=== PATIENT | male | born 1940 | race Caucasian/White ===

== ENCOUNTER 2016-08-30 20:30 | Observation (INO) | payer MEDICARE, OTHER ==
[~2016-08-30] VITALS: Ht 165.1 cm; Wt 85.0 kg
[~2016-08-30 20:30] MED LIST: FLUO-1 PO; LISI-360 PO; ST J81CH PO
[2016-08-30 20:39] VITALS: BP 129/66; PULSE 72; RESP 16; TEMP 98.2; O2SAT 98
--- NOTE | 2016-08-30 20:44 | PD ---
HPI Chief Complaint: GI Complaint Time Seen by Provider: 20:41 Travel History International Travel<30 days: No Contact w/Intl Traveler<30days: No Traveled to known affect area: No History of Present Illness HPI 75yo M with PMH of rectal CA s/p resection 2006, HTN presents to the ED with c/ o blood in diarrhea yesterday and today. Pt has large amounts of blood clots in the diarrhea. Pt had history of gastric ulcer but had colonoscopy and endoscopy 2 years ago in [place] that was normal. As per EVAC, pt was diaphoretic with systolic bp in the low 100. Pt given zofran. +Nausea. Denies any fever, chest pain, sob, vomiting, abdominal pain, focal weakness or numbness. PFSH Past Medical History Hx Anticoagulant Therapy: No Diminished Hearing: No Hypertension: Yes Past Surgical History Eye Surgery: Yes (BILAT CATARACTS) Genitourinary Surgery: Yes (COLON RESECTION) Other Surgery: Yes (BLEEDING ULCER REPAIR) Social History Alcohol Use: Yes (SOC) Tobacco Use: No Substance Use: No Allergies-Medications (Allergen,Severity, Reaction): Coded Allergies: Penicillin (Verified Allergy, Intermediate, HIVES, 08/30/16) Reported Meds & Prescriptions Reported Meds & Active Scripts Active Reported Lisinopril 20 Mg Tab 20 Mg PO DAILY Simvastatin 20 Mg Tab 20 Mg PO DAILY Aspirin 81 Mg Chew 81 Mg CHEW DAILY Prozac (Fluoxetine HCl) 20 Mg Cap 20 Mg PO DAILY Prilosec (Omeprazole) 20 Mg Cap 20 Mg PO DAILY Review of Systems Except as stated in HPI: all other systems reviewed are Neg Physical Exam Narrative GENERAL: 75yo M in mild distress. SKIN: Diaphoretic and pale. HEAD: Atraumatic. Normocephalic. EYES: Pupils equal and round. No scleral icterus. No injection or drainage. ENT: No nasal bleeding or discharge. Mucous membranes pink and moist. NECK: Trachea midline. No JVD. CARDIOVASCULAR: Regular rate and rhythm. No murmur appreciated. RESPIRATORY: No accessory muscle use. Clear to auscultation. Breath sounds equal bilaterally. GASTROINTESTINAL: Abdomen soft, non-tender, nondistended. No rebound tenderness or guarding. RECTAL: Pt has blood clots and maroon color blood on the sheets. MUSCULOSKELETAL: No obvious deformities. No clubbing. No cyanosis. No edema. NEUROLOGICAL: Awake and alert. No obvious cranial nerve deficits. Motor grossly within normal limits. Normal speech. PSYCHIATRIC: Appropriate mood and affect; insight and judgment normal. Data Data Last Documented VS Vital Signs Date Time Temp Pulse Resp B/P Pulse Ox O2 Delivery O2 Flow Rate FiO2 08/30/16 21:06 97 Nasal Cannula 2 08/30/16 20:39 98.2 72 16 129/66 Orders Basic Metabolic Panel (Bmp) (08/30/16 20:47) Complete Blood Count With Diff (08/30/16 20:47) Lipase (08/30/16 20:47) Prothrombin Time / Inr (Pt) (08/30/16 20:47) Act Partial Throm Time (Ptt) (08/30/16 20:47) Type And Screen (08/30/16 20:47) Ecg Monitoring (08/30/16 20:47) Iv Access Insert/Monitor (08/30/16 20:47) Oximetry (08/30/16 20:47) Sodium Chlor 0.9% 1000 Ml Inj (Ns 1000 M (08/30/16 20:47) Sodium Chloride 0.9% Flush (Ns Flush) (08/30/16 21:00) Pantoprazole Inj (Protonix Inj) (08/30/16 21:00) Pantoprazole Inj (Protonix Inj) (08/30/16 21:00) Electrocardiogram (08/30/16 ) Blood Product Administration .UPON TRANSFUSION (08/30/16 21:50) Sodium Chlor 0.9% 250 Ml Inj (Ns 250 Ml (08/30/16 22:00) Protein Corrected Calcium(Pcc) (08/30/16 20:50) Calcium Gluconate Inj (Calcium Gluconate (08/30/16 22:45) Admit Order (Ed Use Only) (08/30/16 22:38) Consult Gastroenterology (08/30/16 ) Red Blood Cells (Rbc) (08/30/16 20:50) Labs Laboratory Tests Test 08/30/16 08/30/16 08/30/16 20:50 21:50 22:21 White Blood Count 7.8 TH/MM3 Red Blood Count 2.32 MIL/MM3 Hemoglobin 7.1 GM/DL Hematocrit 20.8 % Mean Corpuscular Volume 89.3 FL Mean Corpuscular Hemoglobin 30.4 PG Mean Corpuscular Hemoglobin 34.1 % Concent Red Cell Distribution Width 15.0 % Platelet Count 183 TH/MM3 Mean Platelet Volume 9.3 FL Neutrophils (%) (Auto) 72.0 % Lymphocytes (%) (Auto) 18.8 % Monocytes (%) (Auto) 7.5 % Eosinophils (%) (Auto) 0.9 % Basophils (%) (Auto) 0.8 % Neutrophils # (Auto) 5.6 TH/MM3 Lymphocytes # (Auto) 1.5 TH/MM3 Monocytes # (Auto) 0.6 TH/MM3 Eosinophils # (Auto) 0.1 TH/MM3 Basophils # (Auto) 0.1 TH/MM3 CBC Comment AUTO DIFF Differential Comment AUTO DIFF CONFIRMED Platelet Estimate NORMAL Platelet Morphology Comment NORMAL Stomatocytes 1+ Sodium Level 138 MEQ/L Potassium Level 3.7 MEQ/L Chloride Level 105 MEQ/L Carbon Dioxide Level 25.6 MEQ/L Anion Gap 7 MEQ/L Blood Urea Nitrogen 21 MG/DL Creatinine 0.91 MG/DL Estimat Glomerular Filtration 82 ML/MIN Rate Random Glucose 143 MG/DL Calcium Level 6.9 MG/DL Protein Corrected Calcium 8.2 MG/DL Total Protein 4.6 GM/DL Lipase 154 U/L Blood Type O POSITIVE Antibody Screen NEGATIVE Crossmatch Leukocyte-Reduced Irradiated/Leukocyte-Reduced Red Blood RBC Cells Blood Bank Comment Prothrombin Time 11.2 SEC Prothromb Time International 1.0 RATIO Ratio Activated Partial 25.0 SEC Thromboplast Time MDM Medical Decision Making Medical Screen Exam Complete: Yes Emergency Medical Condition: Yes Interpretation(s) EKG: NSR 78bpm. Normal axis. RBBB. ST segment appear elevated in III but it is in an isolated lead and pt has no chest pain. Differential Diagnosis AV malformation vs. rectal bleed vs. upper GI bleed Narrative Course 75yo M with lower GI bleed. Pt is diaphoretic and pale. His vital signs improved upon arrival to the ED. BP 129/66. HR 73. O2sat 96% on RA. Will obtain labs and give IVF NS, blood as needed and protonix. Labs reviewed, hemoglobin 7.1. Will transfuse 3 units of PRBC since pt is having active bleeding. Pt consented to blood transfusion. Pt on protonix drip. Corrected calcium on the lower end and will be transfusing blood so calcium gluconate 1gm IV given. Discussed with Dr. Barnett's ENVIRONMENTAL SERVICES FLOOR TECH and accepted to his service. GI consult placed. Critical Care Narrative Aggregate critical care time was 40 minutes. Time to perform other separately billable procedures was not included in the critical care time. My time did not include minutes spent treating any other patients simultaneously or on activities that did not directly contribute to the patient's treatment. The services I provided to this patient were to treat and/or prevent clinically significant deterioration that could result in: cardiovascular collapse or . I provided critical care services requiring my management, as noted below: Chart data review, documentation time, medication orders and management, vital sign assessments/reviewing monitor data, ordering and reviewing lab tests, ordering and interpreting/reviewing x-rays and diagnostic studies, care of the patient and discussion of the patient with the admitting physicians. Diagnosis Primary Impression: GI bleed Qualified Code: K92.2 - Gastrointestinal hemorrhage, unspecified gastrointestinal hemorrhage type Admitting Information Admitting Physician Requests: Ena Ferguson DO Aug 30, 2016 20:44
[2016-08-30] MEDS ORDERED: PRIL20CA9 PO (20:45)
[2016-08-30] MEDS ORDERED: ASPI81CH CHEW (20:45)
[2016-08-30] MEDS ORDERED: LISI-515 PO (20:45)
[2016-08-30] MEDS ORDERED: SIMV20TA PO (20:45)
[2016-08-30] MEDS ORDERED: PROZ20CA11 PO (20:45)
[2016-08-30] MEDS ORDERED: SODIUM CHLOR 0.9% 1000 ML INJ 1,000 ML IV SCH (20:47)
[2016-08-30] MEDS ORDERED: PANTOPRAZOLE INJ 80 MG in SODIUM CHLORIDE 0.9% INJ 35 ML IV ONE (21:00)
[2016-08-30] MEDS ORDERED: SODIUM CHLORIDE 0.9% FLUSH 10 ML FLUSH IVF PRN (21:00)
[2016-08-30 21:06] VITALS: O2SAT 97
[2016-08-30] MEDS: PANTOPRAZOLE INJ 80 MG in SODIUM CHLORIDE 0.9% INJ 100 ML IV SCH (21:25)
[2016-08-30 21:37] LABS: AUTOMATED NEUTROPHIL # 5.6 TH/MM3 (1.8-7.7); BASOPHIL # 0.1 TH/MM3 (0-0.2); BASOPHIL % 0.8 % (0.0-2.0); EOSINOPHIL # 0.1 TH/MM3 (0-0.4); EOSINOPHIL % 0.9 % (0.0-4.0); LYMPH % 18.8 % (9.0-44.0); LYMPHOCYTE # 1.5 TH/MM3 (1.0-4.8); MEAN CELL VOLUME 89.3 FL (80.0-100.0); MEAN CORPUSCULAR HEMOGLOBIN 30.4 PG (27.0-34.0); MEAN CORPUSCULAR HGB CONC 34.1 % (32.0-36.0); MONO % 7.5 % (0.0-8.0); PLATELET COUNT 183 TH/MM3 (150-450); RED BLOOD COUNT 2.32 MIL/MM3 (4.50-5.90); WHITE BLOOD COUNT 7.8 TH/MM3 (4.0-11.0)
[2016-08-30 21:42] LABS: HEMO FLAGS AUTO DIFF
[2016-08-30 21:48] LABS: HEMATOCRIT 20.8 % (39.0-51.0)
[2016-08-30] MEDS ORDERED: SODIUM CHLOR 0.9% 250 ML INJ 250 ML IV ONE (22:00)
[2016-08-30 22:05] LABS: BICARBONATE 25.6 MEQ/L (21.0-32.0); POTASSIUM 3.7 MEQ/L (3.5-5.1)
[2016-08-30 22:27] LABS: PLATELET ESTIMATE SMEAR NORMAL (NORMAL); PLATELET MORPHOLOGY NORMAL (NORMAL); SCAN/DIFF AUTO DIFF CONFIRMED; STOMATOCYTES 1+ (NORMAL)
[2016-08-30 22:31] LABS: CALCIUM-PROTEIN CORRECTED 8.2 MG/DL (8.5-10.1)
[2016-08-30 22:37] LABS: PROTHROMBIN TIME - PATIENT 11.2 SEC (9.8-11.6)
[2016-08-30] MEDS ORDERED: CALCIUM GLUCONATE INJ 1 GM in DEXTROSE 5% IN WATER 100ML INJ 100 ML IV ONE ×2 (22:45)
[2016-08-30] MEDS ORDERED: SODIUM CHLORIDE 0.9% FLUSH 10 ML FLUSH IV FLUSH PRN (23:00)
[2016-08-30] MEDS ORDERED: ONDANSETRON HCL 4 MG/2 ML VIAL IV PRN (23:00)
[2016-08-30] MEDS: SODIUM CHLOR 0.9% 1000 ML INJ 1,000 ML IV SCH (23:09)
[2016-08-31] VITALS (22 sets, daily range): BP systolic 108–147; BP diastolic 55–92; PULSE 79–107; RESP 16–22; TEMP 96.2–98.1; O2SAT 95–99
[2016-08-31] MEDS: PANTOPRAZOLE INJ 80 MG in SODIUM CHLORIDE 0.9% INJ 100 ML IV SCH ×2 (08:57→16:20)
[2016-08-31] MEDS: FLUoxetine HCL 20 MG CAP PO SCH (08:58)
[2016-08-31] MEDS: PANTOPRAZOLE SODIUM 40 MG VIAL IV SCH (08:58)
[2016-08-31] MEDS: SODIUM CHLORIDE 0.9% FLUSH 10 ML FLUSH IV FLUSH SCH ×2 (09:00→21:00)
--- NOTE | 2016-08-31 10:18 | PD.CONS ---
HPI History of Present Illness This is a 75 year old male who came to the ER for evaluation of bloody diarrhea that began 2 days ago. He was in his normal state of health up until 2 days ago , when he had the sudden urge to move his bowels. He reports that he had a large amount of bloody diarrhea consisting of a large amount of bright red blood. He states he felt lightheaded for a bit, but afterwards felt fine later in the afternoon, went out with his and had no further issues. He then woke up in the morning and had another episode of a large amount of bloody stool. This continued all day and he became so weak that he could not even get up to make it to the bathroom and therefore he called the ambulance for further treatment. He did have a small amount of nausea without vomiting last night in the ambulance, but otherwise did not have any nausea/vomiting. He denies any abdominal pain. His appetite has been good and he denies any weight loss. He does have a hx of stage III colon cancer in 2008 and had 13 inches of colon removed at that time. He did not require radiation. Chemotherapy was recommended, but he had AMS with one dose and states he stopped it and did not receive any further chemotherapy. He gets regular colonoscopies and reports that these have been normal. He reports that he last had [place] E[place] and reports that this was normal. He takes ASA daily and takes Ibuprofen occasionally, but nothing on a regular basis as far as the Ibuprofen. He drinks a few beers daily. He does have a hx of bleeding ulcers in 2003, but states he has not had issues since that time and takes a daily Prilosec. No exotic travel, suspicious food, or sick contacts. (Juli Nieves) PFSH Past Medical History Colon cancer, tx with partial colectomy 2008 HTN, controlled with lisinopril and HCTZ Hyperlipidemia GERD Bleeding PUD Past Surgical History Partial colectomy EGD/Colonoscopy Sinus surgery Port placement Cataract surgery (Juli Nieves) Coded Allergies: Penicillin (Verified Allergy, Intermediate, HIVES, 08/30/16) Medications Allergies Coded Allergies Type Severity Reaction Last Updated Verified Penicillin Allergy Intermediate HIVES 08/30/16 Yes Active Scripts Medications Dose Route/Sig Days Date Category Lisinopril 20 Mg Tab 20 Mg PO DAILY 08/30/16 Reported Simvastatin 20 Mg Tab 20 Mg PO DAILY 08/30/16 Reported Aspirin 81 Mg Chew 81 Mg CHEW DAILY 08/30/16 Reported Prozac (Fluoxetine HCl) 20 Mg Cap 20 Mg PO DAILY 08/30/16 Reported Prilosec (Omeprazole) 20 Mg Cap 20 Mg PO DAILY 08/30/16 Reported Family History No family hx of colon cancer. Mother from ? liver cancer. Social History No tobacco. Quit 50 years ago. 2 beers daily (Juli Nieves) Review of Systems Constitutional: COMPLAINS OF: Fatigue, DENIES: Fever, Chills Endocrine: DENIES: Polydipsia Respiratory: DENIES: Cough Cardiovascular: DENIES: Chest pain Gastrointestinal: COMPLAINS OF: Bloody stools, Nausea, DENIES: Abdominal pain , Black stools, Diarrhea, Vomiting, Swelling of Abdomen, Hematemesis Musculoskeletal: DENIES: Joint pain Hematologic/lymphatic: DENIES: Bruising Neurologic: DENIES: Headache Psychiatric: DENIES: Confusion (Juli Nieves) GI Exam Vitals I&O Vital Signs Date Time Temp Pulse Resp B/P Pulse Ox O2 Delivery O2 Flow Rate FiO2 08/31/16 09:32 96.5 79 16 121/55 98 08/31/16 08:59 96.2 85 17 126/59 98 08/31/16 08:39 96.3 101 17 126/92 98 08/31/16 07:53 97.6 88 16 128/60 99 08/31/16 07:40 97.9 87 18 114/58 98 08/31/16 06:00 97.8 86 20 120/75 98 08/31/16 04:30 98.1 85 20 114/66 98 08/31/16 03:30 98.0 91 22 117/61 08/31/16 03:15 98.0 80 21 108/58 95 08/31/16 03:00 98.0 85 20 111/58 96 08/31/16 02:35 98.1 82 20 111/84 96 08/31/16 02:01 98.1 79 18 116/57 97 08/31/16 02:00 83 08/30/16 21:06 97 Nasal Cannula 2 08/30/16 20:39 98.2 72 16 129/66 98 I/O 08/30/16 08/30/16 08/30/16 08/31/16 08/31/16 08/31/16 07:00 15:00 23:00 07:00 15:00 23:00 Intake Total 550 ml Balance 550 ml IV Total 550 ml # Voids 1 # Bowel Movements 1 Laboratory Test 08/30/16 08/30/16 08/30/16 08/30/16 20:50 21:50 22:21 23:15 White Blood Count 7.8 TH/MM3 Red Blood Count 2.32 MIL/MM3 Hemoglobin 7.1 GM/DL Hematocrit 20.8 % Mean Corpuscular Volume 89.3 FL Mean Corpuscular Hemoglobin 30.4 PG Mean Corpuscular Hemoglobin 34.1 % Concent Red Cell Distribution Width 15.0 % Platelet Count 183 TH/MM3 Mean Platelet Volume 9.3 FL Neutrophils (%) (Auto) 72.0 % Lymphocytes (%) (Auto) 18.8 % Monocytes (%) (Auto) 7.5 % Eosinophils (%) (Auto) 0.9 % Basophils (%) (Auto) 0.8 % Neutrophils # (Auto) 5.6 TH/MM3 Lymphocytes # (Auto) 1.5 TH/MM3 Monocytes # (Auto) 0.6 TH/MM3 Eosinophils # (Auto) 0.1 TH/MM3 Basophils # (Auto) 0.1 TH/MM3 CBC Comment AUTO DIFF Differential Comment AUTO DIFF CONFIRMED Platelet Estimate NORMAL Platelet Morphology Comment NORMAL Stomatocytes 1+ Sodium Level 138 MEQ/L Potassium Level 3.7 MEQ/L Chloride Level 105 MEQ/L Carbon Dioxide Level 25.6 MEQ/L Anion Gap 7 MEQ/L Blood Urea Nitrogen 21 MG/DL Creatinine 0.91 MG/DL Estimat Glomerular Filtration 82 ML/MIN Rate Random Glucose 143 MG/DL Calcium Level 6.9 MG/DL Protein Corrected Calcium 8.2 MG/DL Total Protein 4.6 GM/DL Lipase 154 U/L Blood Type O POSITIVE O POSITIVE Antibody Screen NEGATIVE Crossmatch Leukocyte-Reduced Irradiated/Leukocyte-Reduced Red Blood RBC Cells Blood Bank Comment Prothrombin Time 11.2 SEC Prothromb Time International 1.0 RATIO Ratio Activated Partial 25.0 SEC Thromboplast Time Test 08/30/16 23:59 Blood Type O POSITIVE Physical Examination HEENT: Normocephalic; atraumatic; no jaundice. CHEST: CTA CARDIAC: RRR ABDOMEN: Soft, nondistended, nontender; no hepatosplenomegaly; bowel sounds are present in all four quadrants. EXTREMITIES: No clubbing, cyanosis, or edema. SKIN: Normal; no rash; no jaundice. GLOBAL LOGISTICS MANAGER: No focal deficits; alert and oriented times three. (Juli Nieves) Assessment and Plan Plan ASSESSMENT: - GIB, Bloody Diarrhea. 2 day hx of bloody diarrhea with large amount of bright red blood mixed within stool. No recent travel, suspicious food, sick contacts. Hx colon cancer in 2008. Hx bleeding ulcer in 2003. Last EGD/Colonoscopy [place] ago ([place] of state) and reportedly nL. H/H 7.1/20.8. 2 units PRBC. Will prep today and plan for egd/colonoscopy in am. PPI - Anemia. H/H 7.1/20.8. 2 units PRBC. PPI - Hx Colon cancer. Dx with Stage III colon cancer in 2008 and had partial colectomy with 13 inches of colon removed at that time. He did not require radiation. Chemotherapy was recommended, but he had AMS with one dose and states he stopped it and did not receive any further chemotherapy. He gets regular colonoscopies and reports that these have been normal. He reports that he last had an EGD/[place] and reports that this was normal. - Hx Bleeding PUD. PPI. No n/v, abdominal pain. PLAN: - Plan for egd/colonoscopy in am - Obtain consents - Clear liquids - NPO after MN - [place]ley prep - PPI - Monitor HH - Transfuse as necessary - CBC, BMP in am - Pt seen and examined by Dr. Denies and myself and this note is written on his behalf (Juli Nieves) Physician Comments Seen and examined with FREDRICK, no active bleeding at present. Egd/colonoscopy planned once bowel prep completed. Consider CT scan abd/pelvis. Will follow. Thank you (Brook Denise MD) Juli Nieves Aug 31, 2016 10:18 Brook Denise MD Aug 31, 2016 13:50
--- NOTE | 2016-08-31 11:07 | HHI.HP ---
History of Present Illness Primary Care Physician Bora Barnett, DO Admission Diagnosis GI bleed Diagnoses: History of Present Illness pt had rectal bleeding over the past few days he thought that he had popped a hemrrhoid last pm the bleeding worsened aand he presented to the ED He has had previous colon resection for cancer in the [facility] he had no fu chemo or radiation rx he has also had a previous bleeding ulcer Review of Systems Gastrointestinal: COMPLAINS OF: Abdominal pain, Bloody stools Except as stated in HPI: all other systems reviewed are Neg Past Family Social History Allergies: Coded Allergies: Penicillin (Verified Allergy, Intermediate, HIVES, 08/30/16) Past Medical History cfolon cancer gastric ulcer Past Surgical History colon resection Reported Medications Current Medications Medications (Trade) Dose Ordered Sig/Diamante Route PRN Reason Start Time Stop Time Status Last Admin Dose Admin Pantoprazole Sodium 80 mg/ Sodium Chloride 100 ml @ 10 mls/hr Q10H IV 08/30/16 21:00 08/31/16 08:57 Sodium Chloride 250 ml @ 15 mls/hr ONCE ONCE IV 08/30/16 22:00 08/31/16 14:39 Sodium Chloride (NS 1000 ml Inj) 1,000 ml @ 30 mls/hr Q24H IV 08/30/16 22:49 08/30/16 23:09 Sodium Chloride (NS Flush) 2 ml UNSCH PRN IV FLUSH FLUSH AFTER USING IV ACCESS 08/30/16 23:00 Sodium Chloride (NS Flush) 2 ml BID IV FLUSH 08/31/16 09:00 08/31/16 09:00 Ondansetron HCl (Zofran Inj) 4 mg Q6H PRN IV NAUSEA 08/30/16 23:00 Pantoprazole Sodium (Protonix Inj) 40 mg DAILY IV 08/31/16 09:00 08/31/16 08:58 Fluoxetine HCl (PROzac) 20 mg DAILY PO 08/31/16 09:00 08/31/16 08:58 Polyethylene Glycol/ Electrolytes (Colyte Liq) 4,000 ml ONCE ONCE PO 08/31/16 16:00 08/31/16 16:01 Active Ordered Medications Current Medications Medications (Trade) Dose Ordered Sig/Diamante Route PRN Reason Start Time Stop Time Status Last Admin Dose Admin Pantoprazole Sodium 80 mg/ Sodium Chloride 100 ml @ 10 mls/hr Q10H IV 08/30/16 21:00 08/31/16 08:57 Sodium Chloride 250 ml @ 15 mls/hr ONCE ONCE IV 08/30/16 22:00 08/31/16 14:39 Sodium Chloride (NS 1000 ml Inj) 1,000 ml @ 30 mls/hr Q24H IV 08/30/16 22:49 08/30/16 23:09 Sodium Chloride (NS Flush) 2 ml UNSCH PRN IV FLUSH FLUSH AFTER USING IV ACCESS 08/30/16 23:00 Sodium Chloride (NS Flush) 2 ml BID IV FLUSH 08/31/16 09:00 08/31/16 09:00 Ondansetron HCl (Zofran Inj) 4 mg Q6H PRN IV NAUSEA 08/30/16 23:00 Pantoprazole Sodium (Protonix Inj) 40 mg DAILY IV 08/31/16 09:00 08/31/16 08:58 Fluoxetine HCl (PROzac) 20 mg DAILY PO 08/31/16 09:00 08/31/16 08:58 Polyethylene Glycol/ Electrolytes (Colyte Liq) 4,000 ml ONCE ONCE PO 08/31/16 16:00 08/31/16 16:01 Family History father of old age mother of cancer Social History non smoker occasional drinker Physical Exam Vital Signs Vital Signs Date Time Temp Pulse Resp B/P Pulse Ox O2 Delivery O2 Flow Rate FiO2 08/31/16 10:38 96.3 85 17 130/60 08/31/16 09:32 96.5 79 16 121/55 98 08/31/16 08:59 96.2 85 17 126/59 98 08/31/16 08:39 96.3 101 17 126/92 98 08/31/16 07:53 97.6 88 16 128/60 99 08/31/16 07:40 97.9 87 18 114/58 98 08/31/16 06:00 97.8 86 20 120/75 98 08/31/16 04:30 98.1 85 20 114/66 98 08/31/16 03:30 98.0 91 22 117/61 08/31/16 03:15 98.0 80 21 108/58 95 08/31/16 03:00 98.0 85 20 111/58 96 08/31/16 02:35 98.1 82 20 111/84 96 08/31/16 02:01 98.1 79 18 116/57 97 08/31/16 02:00 83 08/30/16 21:06 97 Nasal Cannula 2 08/30/16 20:39 98.2 72 16 129/66 98 Physical Exam GENERAL: This is a well-nourished, well-developed patient, in no apparent distress. SKIN: No rashes, ecchymoses or lesions. Cool and dry. HEAD: Atraumatic. Normocephalic. No temporal or scalp tenderness. EYES: Pupils equal round and reactive. Extraocular motions intact. No scleral icterus. No injection or drainage. ENT: Nose without bleeding, purulent drainage or septal hematoma. Throat without erythema, tonsillar hypertrophy or exudate. Uvula midline. Airway patent. NECK: Trachea midline. No JVD or lymphadenopathy. Supple, nontender, no meningeal signs. CARDIOVASCULAR: Regular rate and rhythm without murmurs, gallops, or rubs. RESPIRATORY: Clear to auscultation. Breath sounds equal bilaterally. No wheezes , rales, or rhonchi. GASTROINTESTINAL: Abdomen soft, tender, nondistended. No hepato-splenomegaly, or palpable masses. MUSCULOSKELETAL: Extremities without clubbing, cyanosis, or edema. No joint tenderness, effusion, or edema noted. No calf tenderness. Negative Homans sign bilaterally. NEUROLOGICAL: Awake and alert. Cranial nerves II through XII intact. Motor and sensory grossly within normal limits. Five out of 5 muscle strength in all muscle groups. Normal speech. Laboratory Laboratory Tests Test 08/30/16 08/30/16 08/30/16 08/30/16 20:50 21:50 22:21 23:15 White Blood Count 7.8 Red Blood Count 2.32 Hemoglobin 7.1 Hematocrit 20.8 Mean Corpuscular Volume 89.3 Mean Corpuscular Hemoglobin 30.4 Mean Corpuscular Hemoglobin 34.1 Concent Red Cell Distribution Width 15.0 Platelet Count 183 Mean Platelet Volume 9.3 Neutrophils (%) (Auto) 72.0 Lymphocytes (%) (Auto) 18.8 Monocytes (%) (Auto) 7.5 Eosinophils (%) (Auto) 0.9 Basophils (%) (Auto) 0.8 Neutrophils # (Auto) 5.6 Lymphocytes # (Auto) 1.5 Monocytes # (Auto) 0.6 Eosinophils # (Auto) 0.1 Basophils # (Auto) 0.1 CBC Comment AUTO DIFF Differential Comment AUTO DIFF CONFIRMED Platelet Estimate NORMAL Platelet Morphology Comment NORMAL Stomatocytes 1+ Sodium Level 138 Potassium Level 3.7 Chloride Level 105 Carbon Dioxide Level 25.6 Anion Gap 7 Blood Urea Nitrogen 21 Creatinine 0.91 Estimat Glomerular Filtration 82 Rate Random Glucose 143 Calcium Level 6.9 Protein Corrected Calcium 8.2 Total Protein 4.6 Lipase 154 Blood Type O POSITIVE O POSITIVE Antibody Screen NEGATIVE Crossmatch Leukocyte-Reduced Irradiated/Leukocyte-Reduced Red Blood RBC Cells Blood Bank Comment Prothrombin Time 11.2 Prothromb Time International 1.0 Ratio Activated Partial 25.0 Thromboplast Time Test 08/30/16 23:59 Blood Type O POSITIVE Result Diagram: 08/30/16204908/30/162049 Assessment and Plan Problem List: (1) GI bleed Status: Acute Plan: currently being transfused will follow hgb closely pt is on iv protonix GI consulted will probably need endoscopy Discussed Condition With patient Problem Qualifiers (1) GI bleed: Qualified Code: K92.2 - Gastrointestinal hemorrhage, unspecified gastrointestinal hemorrhage type Bora Barnett DO Aug 31, 2016 11:07
[2016-08-31] MEDS ORDERED: PEG (High)/E-LYTE SOLN 4000 ML BTL PO ONE (16:00)
[2016-08-31 21:10] LABS: AUTOMATED NEUTROPHIL # 4.6 TH/MM3 (1.8-7.7); BASOPHIL # 0.1 TH/MM3 (0-0.2); BASOPHIL % 0.8 % (0.0-2.0); EOSINOPHIL # 0.1 TH/MM3 (0-0.4); EOSINOPHIL % 2.1 % (0.0-4.0); HEMATOCRIT 26.7 % (39.0-51.0); HEMO FLAGS DIFF FINAL; LYMPH % 22.4 % (9.0-44.0); LYMPHOCYTE # 1.6 TH/MM3 (1.0-4.8); MEAN CELL VOLUME 87.2 FL (80.0-100.0); MEAN CORPUSCULAR HEMOGLOBIN 30.2 PG (27.0-34.0); MEAN CORPUSCULAR HGB CONC 34.7 % (32.0-36.0); MONO % 9.4 % (0.0-8.0); NEUT % 65.3 % (16.0-70.0); PLATELET COUNT 140 TH/MM3 (150-450); RED BLOOD COUNT 3.06 MIL/MM3 (4.50-5.90); RED CELL DISTRIBUTION WIDTH 15.3 % (11.6-17.2); WHITE BLOOD COUNT 7.1 TH/MM3 (4.0-11.0)
[2016-08-31] MEDS: SODIUM CHLOR 0.9% 1000 ML INJ 1,000 ML IV SCH (22:00)
[2016-08-31 22:17] LABS: BICARBONATE 28.3 MEQ/L (21.0-32.0); POTASSIUM 3.5 MEQ/L (3.5-5.1)
[2016-08-31 23:17] LABS: CALCIUM-PROTEIN CORRECTED 8.5 MG/DL (8.5-10.1)
[2016-09-01 00:10] VITALS: BP 147/72; PULSE 89; RESP 19; TEMP 97.9; O2SAT 95
[2016-09-01] MEDS: PANTOPRAZOLE INJ 80 MG in SODIUM CHLORIDE 0.9% INJ 100 ML IV SCH (02:59)
[2016-09-01 07:15] LABS: AUTOMATED NEUTROPHIL # 3.2 TH/MM3 (1.8-7.7); BASOPHIL # 0.1 TH/MM3 (0-0.2); BASOPHIL % 1.4 % (0.0-2.0); EOSINOPHIL # 0.2 TH/MM3 (0-0.4); EOSINOPHIL % 4.6 % (0.0-4.0); HEMO FLAGS DIFF FINAL; LYMPH % 23.8 % (9.0-44.0); LYMPHOCYTE # 1.3 TH/MM3 (1.0-4.8); MEAN CELL VOLUME 87.3 FL (80.0-100.0); MEAN CORPUSCULAR HEMOGLOBIN 29.7 PG (27.0-34.0); MONO % 9.8 % (0.0-8.0); NEUT % 60.4 % (16.0-70.0); PLATELET COUNT 129 TH/MM3 (150-450); RED BLOOD COUNT 2.97 MIL/MM3 (4.50-5.90); RED CELL DISTRIBUTION WIDTH 15.2 % (11.6-17.2); WHITE BLOOD COUNT 5.4 TH/MM3 (4.0-11.0)
[2016-09-01 07:47] LABS: BICARBONATE 27.8 MEQ/L (21.0-32.0); CALCIUM-PROTEIN CORRECTED 8.6 MG/DL (8.5-10.1); POTASSIUM 3.4 MEQ/L (3.5-5.1); TOTAL BILIRUBIN ADULT 0.4 MG/DL (0.2-1.0)
[2016-09-01 08:34] VITALS: BP 144/70; PULSE 80; RESP 18; TEMP 97.5; O2SAT 96
[2016-09-01] MEDS: SODIUM CHLORIDE 0.9% FLUSH 10 ML FLUSH IV FLUSH SCH ×2 (09:00→20:33)
[2016-09-01] MEDS: PANTOPRAZOLE SODIUM 40 MG VIAL IV SCH (10:02)
[2016-09-01] MEDS: FLUoxetine HCL 20 MG CAP PO SCH (10:02)
--- NOTE | 2016-09-01 10:18 | HHI.PR ---
Subjective Remarks pt remains in ED no new bleeding Objective Vital Signs Date Time Temp Pulse Resp B/P Pulse Ox O2 Delivery O2 Flow Rate FiO2 09/01/16 08:34 97.5 80 18 144/70 96 09/01/16 00:10 97.9 89 19 147/72 95 08/31/16 20:07 98.0 97 19 147/82 96 08/31/16 19:54 107 08/31/16 15:56 91 08/31/16 15:47 92 18 118/65 95 08/31/16 14:49 96.2 86 18 133/60 08/31/16 14:19 96.9 87 18 126/60 08/31/16 13:51 97.3 92 18 143/65 98 08/31/16 11:55 84 18 122/60 95 08/31/16 10:38 96.3 85 17 130/60 I/O 08/31/16 08/31/16 08/31/16 09/01/16 09/01/16 09/01/16 07:00 15:00 23:00 07:00 15:00 23:00 Intake Total 550 ml 600 ml Balance 550 ml 600 ml IV Total 550 ml 600 ml # Voids 1 # Bowel Movements 1 Result Diagram: 09/01/16 0545 09/01/16 0545 Objective Remarks CONSTITUTIONAL/GENERAL: This is an adequately nourished patient, in no apparent distress. TUBES/LINES/DRAINS: SKIN: No jaundice, rashes, or lesions. Ecchymoses on upper extremities. No wounds seen anteriorly. Skin temperature appropriate. Not diaphoretic. HEAD: Atraumatic. Normocephalic. EYES: Pupils equal and round and reactive. Extraocular motions intact. No scleral icterus. No injection or drainage. Fundi not examined. ENT: Hearing grossly normal. Nose without bleeding or purulent drainage. Throat without visible erythema, exudates, masses, or lesions. NECK: Trachea midline. Supple, nontender. No palpable thyroid enlargement or nodularity. CARDIOVASCULAR: Regular rate and rhythm without murmurs, gallops, or rubs. No JVD. Peripheral pulses symmetric. RESPIRATORY/CHEST: Symmetric, unlabored respirations. Clear to auscultation. Breath sounds equal bilaterally. No wheezes, rales, or rhonchi. GASTROINTESTINAL: Abdomen soft, non-tender, nondistended. No hepato-splenomegaly , or palpable masses. No guarding. Bowel sounds present. GENITOURINARY: Without palpable bladder distension. Causey catheter in place. MUSCULOSKELETAL: Extremities without clubbing, cyanosis, or edema. No joint tenderness or effusion noted. No calf tenderness. No mottling or clubbing. LYMPHATICS: No palpable cervical or supraclavicular adenopathy. NEUROLOGICAL: Awake and alert. Motor and sensory grossly within normal limits. Follows commands. Cognitively sharp. Moves all extremities. PSYCHIATRIC: No obvious anxiety/depression. no apparent hallucinations or other psychotic thought process. Medications and IVs Current Medications Medications (Trade) Dose Ordered Sig/Diamante Route PRN Reason Start Time Stop Time Status Last Admin Dose Admin Pantoprazole Sodium 80 mg/ Sodium Chloride 100 ml @ 10 mls/hr Q10H IV 08/30/16 21:00 09/01/16 02:59 Sodium Chloride (NS 1000 ml Inj) 1,000 ml @ 30 mls/hr Q24H IV 08/30/16 22:49 08/31/16 22:00 Sodium Chloride (NS Flush) 2 ml UNSCH PRN IV FLUSH FLUSH AFTER USING IV ACCESS 08/30/16 23:00 Sodium Chloride (NS Flush) 2 ml BID IV FLUSH 08/31/16 09:00 08/31/16 09:00 Ondansetron HCl (Zofran Inj) 4 mg Q6H PRN IV NAUSEA 08/30/16 23:00 Pantoprazole Sodium (Protonix Inj) 40 mg DAILY IV 08/31/16 09:00 09/01/16 10:02 Fluoxetine HCl (PROzac) 20 mg DAILY PO 08/31/16 09:00 09/01/16 10:02 Assessment and Plan Problem List: (1) GI bleed Status: Acute Plan: pt scheduled for colonoscopy today Assessment and Plan gi bleed sp colon resection for cancer Problem Qualifiers (1) GI bleed: Qualified Code: K92.2 - Gastrointestinal hemorrhage, unspecified gastrointestinal hemorrhage type Bora Barnett DO Sep 01, 2016 10:18
[2016-09-01] MEDS ORDERED: PROPOFOL 200 MG/20 ML AMP IV ONE (11:28)
--- NOTE | 2016-09-01 11:47 | GIPROC ---
[facility] [address] [facility], [address] EGD PROCEDURE REPORT EXAM DATE: 09/01/2016 PATIENT NAME: Milton Bill MR #: [id number] BIRTHDATE: 1940 ATTENDING: Brook Denise MD ORDER #: [id number] HEAD HOUSEKEEPER: Destiny David and Gabby Prieto STATUS: inpatient INDICATIONS: The patient is a 75 yr old male here for an EGD due to hematochezia PROCEDURE PERFORMED: EGD w/ biopsy MEDICATIONS: Per Anesthesia and None. TOPICAL ANESTHETIC: CONSENT: The patient understands the risks and benefits of the procedure and understands that these risks include, but are not limited to: sedation, allergic reaction, infection, perforation and/or bleeding. Alternative means of evaluation and treatment include, among others: physical exam, x-rays, and/or surgical intervention. The patient elects to proceed with this endoscopic procedure. medical equipment was checked for proper function. Hand hygiene and appropriate measures for infection prevention was taken. After the risks, benefits and alternatives of the procedure were thoroughly explained, Informed consent was verified, confirmed and timeout was successfully executed by the treatment team. The patient was anesthetized with topical anesthesia and the EC-3490Li (Pedi C) endoscope was introduced through the mouth and advanced to the second portion of the duodenum. Retroflexed views revealed no abnormalities The gastroscope was then slowly withdrawn and removed. STOMACH: There was mild gastritis in the gastric antrum. A biopsy was performed using cold forceps. Sample sent for histology. ESOPHAGUS: The mucosa of the esophagus appeared normal. DUODENUM: The duodenal mucosa appeared normal. ADVERSE EVENTS: There were no complications. IMPRESSIONS: 1. There was mild gastritis in the gastric antrum; biopsy was performed 2. The esophagus appeared normal 3. Normal duodenal mucosa 4. Retroflexed views revealed no abnormalities RECOMMENDATIONS: 1. Await biopsy results. Biopsy results will not be ready for 7-10 days. If you don't hear from us in two weeks, call our office for biopsy results. 2. Anti-reflux regimen 3. Continue PPI 4. Avoid NSAIDS PATIENT CONDITION: stable DISPOSITION: Inpatient REPEAT EXAM: Return 3 years EGD Brook Denise MD eSigned: Brook Denise MD 09/01/2016 11:46 AM cc: PATIENT NAME: Milton Bill MR#: [id number]
[2016-09-01] MEDS ORDERED: DO NOT ADM ANY ANTICOAGULANT DRUGS PRN (11:50)
--- NOTE | 2016-09-01 11:50 | GIPROC ---
[facility] [address] [facility]. [facility], [address] COLONOSCOPY PROCEDURE REPORT EXAM DATE: 09/01/2016 PATIENT NAME: Milton Bill MR #: [id number] BIRTHDATE: 1940 ENDOSCOPIST: Brook Denise MD ORDER #: [id number] TURF FARM WORKER: Destiny David and Gabby Prieto STATUS: inpatient INDICATIONS: The patient is a 75 yr old male here for a colonoscopy due to iron deficiency anemia and hematochezia PROCEDURE PERFORMED: Colonoscopy, diagnostic MEDICATIONS: Per Anesthesia and None. PREP QUALITY: The [place] Bowel Prep Score was Right colon 2, Mid colon 3, and Left colon 3. Total = 8. PREP TYPE:GoLytely ESTIMATED BLOOD LOSS: None CONSENT: The patient understands the risks and benefits of the procedure and understands that these risks include, but are not limited to: sedation, allergic reaction, infection, perforation and/or bleeding. Alternative means of evaluation and treatment include, among others: physical exam, x-rays, and/or surgical intervention. The patient elects to proceed with this endoscopic procedure. medical equipment was checked for proper function. Hand hygiene and appropriate measures for infection prevention was taken. After the risks, benefits and alternatives of the procedure were thoroughly explained, Informed consent was verified, confirmed and timeout was successfully executed by the treatment team. A digital exam revealed external hemorrhoids The Pentax EC-3490Li endoscope was introduced through the anus and advanced to the cecum, which was identified by both the appendix and ileocecal valve. The instrument was then slowly withdrawn as the colon was fully examined. COLON FINDINGS: Normal colonoscopy to Terminel illeum. L sided anastomosis. Retroflexed views revealed internal hemorrhoids and Retroflexed views revealed small internal hemorrhoids The scope was then completely withdrawn from the patient and the procedure terminated. PROCEDURE WITHDRAWAL TIME:6minutes ADVERSE EVENTS: There were no complications. IMPRESSIONS: 1. Normal colonoscopy to Terminel illeum. L sided anastomosis 2. Retroflexed views revealed internal hemorrhoids 3. Retroflexed views revealed small internal hemorrhoids 4. Revealed external hemorrhoids RECOMMENDATIONS: 1. Yearly hemoccult 2. Monitor labs, SBFT, if further bleeding recommend bleeding scan. Out patient Pill cam RECALL: Return 5 years Colonoscopy Brook Denise MD eSigned: Brook Denise MD 09/01/2016 11:50 AM cc:
[2016-09-01] MEDS ORDERED: MAGNESIUM CITRATE SOLN 300 ML BTL PO ONE ×2 (12:00→18:00)
[2016-09-01 16:14] VITALS: BP 142/60; PULSE 79; RESP 20; TEMP 97.8; O2SAT 97
[2016-09-01 17:46] VITALS: PULSE 74
[2016-09-01] MEDS: BISACODYL EC 5 MG TABEC PO SCH ×2 (18:00→20:34)
[2016-09-01 19:40] VITALS: BP 153/70; PULSE 87; RESP 20; TEMP 98.1; O2SAT 97
[2016-09-01] MEDS: SODIUM CHLOR 0.9% 1000 ML INJ 1,000 ML IV SCH (20:35)
--- NOTE | 2016-09-01 21:23 | EKG ---
Date Performed: 08/30/2016 Time Performed: 21:10:50 PTAGE: 75 years EKG: Sinus rhythm RIGHT BUNDLE BRANCH BLOCK ABNORMAL ECG NO PREVIOUS TRACING DOCTOR: Benjie Briceno Interpretating Date/Time 09/01/2016 21:21:28
[2016-09-02] VITALS (7 sets, daily range): BP systolic 131–158; BP diastolic 67–74; PULSE 62–83; RESP 16–20; TEMP 97.7–98.5; O2SAT 95–100
[2016-09-02 06:09] LABS: AUTOMATED NEUTROPHIL # 5.4 TH/MM3 (1.8-7.7); BASOPHIL # 0.1 TH/MM3 (0-0.2); BASOPHIL % 0.8 % (0.0-2.0); EOSINOPHIL # 0.3 TH/MM3 (0-0.4); HEMATOCRIT 26.6 % (39.0-51.0); HEMO FLAGS DIFF FINAL; LYMPH % 12.5 % (9.0-44.0); LYMPHOCYTE # 0.9 TH/MM3 (1.0-4.8); MEAN CELL VOLUME 87.4 FL (80.0-100.0); MEAN CORPUSCULAR HEMOGLOBIN 30.5 PG (27.0-34.0); MEAN CORPUSCULAR HGB CONC 34.9 % (32.0-36.0); MONO % 8.6 % (0.0-8.0); NEUT % 74.1 % (16.0-70.0); PLATELET COUNT 167 TH/MM3 (150-450); RED BLOOD COUNT 3.04 MIL/MM3 (4.50-5.90); RED CELL DISTRIBUTION WIDTH 14.9 % (11.6-17.2); WHITE BLOOD COUNT 7.4 TH/MM3 (4.0-11.0)
[2016-09-02 06:57] LABS: BICARBONATE 27.2 MEQ/L (21.0-32.0); POTASSIUM 3.5 MEQ/L (3.5-5.1)
--- NOTE | 2016-09-02 08:19 | HHI.PR ---
Subjective Remarks pt remains in ED G80 no new bleeding had colonoscopy yesterday only small internal and external hemrrhoids found further proceedures scheduled for today Objective Vital Signs Date Time Temp Pulse Resp B/P Pulse Ox O2 Delivery O2 Flow Rate FiO2 09/02/16 07:48 97.7 70 16 150/71 98 09/02/16 04:24 64 09/02/16 03:47 98.3 62 20 148/72 96 09/02/16 00:17 98.5 80 20 147/69 95 09/01/16 19:40 98.1 87 20 153/70 97 09/01/16 17:46 74 09/01/16 16:14 97.8 79 20 142/60 97 09/01/16 12:15 98.1 74 15 120/57 97 09/01/16 12:00 74 16 118/54 96 09/01/16 11:50 98.0 70 15 116/55 95 09/01/16 08:34 97.5 80 18 144/70 96 I/O 09/01/16 09/01/16 09/01/16 09/02/16 09/02/16 09/02/16 07:00 15:00 23:00 07:00 15:00 23:00 Intake Total 600 ml 230 ml Output Total 50 ml 1500 ml 500 ml Balance 600 ml 180 ml -1500 ml -500 ml IV Total 600 ml 30 ml Other 200 ml Output Urine Total 0 ml 1500 ml 500 ml Estimated Blood Loss 50 ml Result Diagram: 09/02/16 0525 09/02/16 0525 Procedures colonoscopy no obvious bleeding source Objective Remarks CONSTITUTIONAL/GENERAL: This is an adequately nourished patient, in no apparent distress. TUBES/LINES/DRAINS: SKIN: No jaundice, rashes, or lesions. Ecchymoses on upper extremities. No wounds seen anteriorly. Skin temperature appropriate. Not diaphoretic. HEAD: Atraumatic. Normocephalic. EYES: Pupils equal and round and reactive. Extraocular motions intact. No scleral icterus. No injection or drainage. Fundi not examined. ENT: Hearing grossly normal. Nose without bleeding or purulent drainage. Throat without visible erythema, exudates, masses, or lesions. NECK: Trachea midline. Supple, nontender. No palpable thyroid enlargement or nodularity. CARDIOVASCULAR: Regular rate and rhythm without murmurs, gallops, or rubs. No JVD. Peripheral pulses symmetric. RESPIRATORY/CHEST: Symmetric, unlabored respirations. Clear to auscultation. Breath sounds equal bilaterally. No wheezes, rales, or rhonchi. GASTROINTESTINAL: Abdomen soft, minimal tenderness, nondistended. No hepato- splenomegaly, or palpable masses. No guarding. Bowel sounds present. GENITOURINARY: Without palpable bladder distension. Causey catheter in place. MUSCULOSKELETAL: Extremities without clubbing, cyanosis, or edema. No joint tenderness or effusion noted. No calf tenderness. No mottling or clubbing. LYMPHATICS: No palpable cervical or supraclavicular adenopathy. NEUROLOGICAL: Awake and alert. Motor and sensory grossly within normal limits. Follows commands. Cognitively sharp. Moves all extremities. PSYCHIATRIC: No obvious anxiety/depression. no apparent hallucinations or other psychotic thought process. Medications and IVs Current Medications Medications (Trade) Dose Ordered Sig/Diamante Route PRN Reason Start Time Stop Time Status Last Admin Dose Admin Sodium Chloride (NS 1000 ml Inj) 1,000 ml @ 30 mls/hr Q24H IV 08/30/16 22:49 09/01/16 20:35 Sodium Chloride (NS Flush) 2 ml UNSCH PRN IV FLUSH FLUSH AFTER USING IV ACCESS 08/30/16 23:00 Sodium Chloride (NS Flush) 2 ml BID IV FLUSH 08/31/16 09:00 08/31/16 09:00 Ondansetron HCl (Zofran Inj) 4 mg Q6H PRN IV NAUSEA 08/30/16 23:00 Pantoprazole Sodium (Protonix Inj) 40 mg DAILY IV 08/31/16 09:00 09/01/16 10:02 Fluoxetine HCl (PROzac) 20 mg DAILY PO 08/31/16 09:00 09/01/16 10:02 Miscellaneous Information ALL NURSING DEPARTME... UNSCH PRN .XX SEE LABEL COMMENTS 09/01/16 11:50 09/02/16 11:49 Assessment and Plan Problem List: (1) GI bleed Status: Acute Plan: pt scheduled for colonoscopy today Assessment and Plan gi bleed sp colon resection for cancer Discussed Condition With patient Discharge Planning home Problem Qualifiers (1) GI bleed: Qualified Code: K92.2 - Gastrointestinal hemorrhage, unspecified gastrointestinal hemorrhage type Bora Barnett DO Sep 02, 2016 08:19
[2016-09-02] MEDS: SODIUM CHLORIDE 0.9% FLUSH 10 ML FLUSH IV FLUSH SCH (09:00)
[2016-09-02] MEDS: PANTOPRAZOLE SODIUM 40 MG VIAL IV SCH (11:39)
[2016-09-02] MEDS: FLUoxetine HCL 20 MG CAP PO SCH (11:39)
--- NOTE | 2016-09-02 12:02 | RADRPT ---
EXAM DATE/TIME: 09/02/2016 09:15 [place] COMPARISON: AC JOINTS BILAT (W/WO WEIGHTS), September 26, 2015, 15:58. INDICATIONS : Anemia, blood in stool, diarrhea. FLUORO TIME: 0.0 minutes IMAGE COUNT: 11 CONTRAST: Entero Vu 24% Barium Sulfate (24% w/v, 20% w/w) IMAGING TIME(S): 15 min, 30 min, 45 min, 1 hr, 1.5 hrs MEDICAL HISTORY : Hypertension. Gastroesophageal reflux disease. SURGICAL HISTORY : Colon resection. ENCOUNTER: Initial ACUITY: 4 - 6 days PAIN SCORE: 0/10 LOCATION: Entire abdomen. FINDINGS: Preliminary film demonstrates degenerative changes in the lumbar spine but is otherwise unremarkable. The stomach is grossly unremarkable. Examination of the small bowel demonstrates normal mucosal pattern involving the jejunum and ileum. There is no evidence of mass or obstruction. No intraluminal filling defects are identified. Small bowel transit time is normal at 60 minutes. Fluoroscopy of the abdomen and terminal ileum demonstrat es no abnormality. CONCLUSION: Unremarkable small bowel examination. Jaya Tabor MD on September 02, 2016 at 11:58 Board Certified Radiologist. This report was verified electronically.
--- NOTE | 2016-09-02 15:18 | HHI.GIFU ---
Subjective Remarks Pt laying in bed comfortably, asking to go home. No blood in stool. No n/v or abdominal pain. (Keerthi Gibbs) Objective Vitals I&O Vital Signs Date Time Temp Pulse Resp B/P Pulse Ox O2 Delivery O2 Flow Rate FiO2 09/02/16 14:19 71 09/02/16 11:59 97.9 83 16 158/74 97 09/02/16 07:48 97.7 70 16 150/71 98 09/02/16 04:24 64 09/02/16 03:47 98.3 62 20 148/72 96 09/02/16 00:17 98.5 80 20 147/69 95 09/01/16 19:40 98.1 87 20 153/70 97 09/01/16 17:46 74 09/01/16 16:14 97.8 79 20 142/60 97 I/O 09/01/16 09/01/16 09/01/16 09/02/16 09/02/16 09/02/16 07:00 15:00 23:00 07:00 15:00 23:00 Intake Total 600 ml 230 ml Output Total 50 ml 1500 ml 500 ml Balance 600 ml 180 ml -1500 ml -500 ml IV Total 600 ml 30 ml Other 200 ml Output Urine Total 0 ml 1500 ml 500 ml Estimated Blood Loss 50 ml # Voids 1 # Bowel Movements 1 Laboratory Laboratory Tests Test 09/02/16 05:25 White Blood Count 7.4 Red Blood Count 3.04 Hemoglobin 9.3 Hematocrit 26.6 Mean Corpuscular Volume 87.4 Mean Corpuscular Hemoglobin 30.5 Mean Corpuscular Hemoglobin 34.9 Concent Red Cell Distribution Width 14.9 Platelet Count 167 Mean Platelet Volume 8.3 Neutrophils (%) (Auto) 74.1 Lymphocytes (%) (Auto) 12.5 Monocytes (%) (Auto) 8.6 Eosinophils (%) (Auto) 4.0 Basophils (%) (Auto) 0.8 Neutrophils # (Auto) 5.4 Lymphocytes # (Auto) 0.9 Monocytes # (Auto) 0.6 Eosinophils # (Auto) 0.3 Basophils # (Auto) 0.1 CBC Comment DIFF FINAL Differential Comment Sodium Level 143 Potassium Level 3.5 Chloride Level 108 Carbon Dioxide Level 27.2 Anion Gap 8 Blood Urea Nitrogen 7 Creatinine 0.91 Estimat Glomerular Filtration 82 Rate Random Glucose 107 Calcium Level 7.8 Imaging Last Impressions Small Bowel X-Ray 09/02/16 0000 Signed Impressions: Service Date/Time: Friday, September 02, 2016 09:15 - CONCLUSION: Unremarkable small bowel examination. Jaya Tabor MD Physical Exam HEENT: EOMI; normocephalic; atraumatic; no jaundice. NECK: Neck is supple, no JVD CHEST: Chest is clear to auscultation and percussion. CARDIAC: Regular rate and rhythm with no murmur gallop or rubs. ABDOMEN: Soft, nondistended, nontender; no hepatosplenomegaly; bowel sounds are present in all four quadrants. EXTREMITIES: No clubbing, cyanosis, or edema. SKIN: Normal; no rash; no jaundice. TUBING SUPERVISOR: No focal deficits; alert and oriented times three. (Keerthi Gibbs) Assessment and Plan Plan ASSESSMENT: - GIB, Bloody Diarrhea. 2 day hx of bloody diarrhea with large amount of bright red blood mixed within stool. No recent travel, suspicious food, sick contacts. Hx colon cancer in 2008. Hx bleeding ulcer in 2003. 09/01/16 EGD/colonoscopy -----> colonoscopy normal to terminal ileum, left sided anstomosis, internal hemorrhoids, external hemorrhoids; EGD- mild gastritis. 09/02/16 SBFT ----> unremarkable. H/H improving 9.3, 26.6 - Anemia. H/H improving 9.3, 26.6. PPI - Hx Colon cancer. Dx with Stage III colon cancer in 2008 and had partial colectomy with 13 inches of colon removed at that time. He did not require radiation. Chemotherapy was recommended, but he had AMS with one dose and states he stopped it and did not receive any further chemotherapy. He gets regular colonoscopies and reports that these have been normal. He reports that he last [place] E[place] and reports that this was normal. - Hx Bleeding PUD. PPI. No n/v, abdominal pain. PLAN: - Ok to d/c from GI standpoint - pt to f/u in 2 weeks for capsule endoscopy - advance to heart healthy diet as tolerated - Pt seen and examined by Dr. Denise and myself and this note is written on his behalf (Keerthi Gibbs) Physician Comments Seen and examined with [employer] EXAMINER, no bleeding. SBFT -ve. No clear bleeding source found. Can dc home with gi fu in 02 weeks. Thank you (Brook Denise MD) Keerthi Gibbs Sep 02, 2016 15:18 Brook Denise MD Sep 02, 2016 17:49
--- NOTE | 2016-09-02 18:02 | HHI.DCPOC ---
Discharge Care Plan Diagnosis: (1) GI bleed Your Health Problems Are: Bleeding Tendency Goals to Promote Your Health * To prevent worsening of your condition and complications * To maintain your health at the optimal level Directions to Meet Your Goals Take your medications as prescribed Follow your dietary instruction Follow activity as directed Keep your appointments as scheduled Take your immunizations and boosters as scheduled If your symptoms worsen call your PCP, if no PCP go to Urgent Care Center or Emergency Room Smoking is Dangerous to Your Health. Avoid second hand smoke Call the 24-hour hour crisis hotline for domestic abuse at Addis Veras DO Sep 02, 2016 18:01
--- NOTE | 2016-09-02 18:09 | HHI.DS ---
Discharge Summary Admission Date Aug 30, 2016 at 22:41 Discharge Date: Sep 02, 2016 Admitting Diagnosis GI bleed (1) GI bleed Diagnosis: Principal Procedures egd/colonoscopy Brief History c note CBC/BMP: 09/02/16 0525 09/02/16 0525 Significant Findings Laboratory Tests Test 08/30/16 08/31/16 09/01/16 09/02/16 20:50 20:39 05:45 05:25 Red Blood Count 2.32 MIL/MM3 3.06 MIL/MM3 2.97 MIL/MM3 3.04 MIL/MM3 (4.50-5.90) (4.50-5.90) (4.50-5.90) (4.50-5.90) Hemoglobin 7.1 GM/DL 9.3 GM/DL 8.8 GM/DL 9.3 GM/DL (13.0-17.0) (13.0-17.0) (13.0-17.0) (13.0-17.0) Hematocrit 20.8 % 26.7 % 26.0 % 26.6 % (39.0-51.0) (39.0-51.0) (39.0-51.0) (39.0-51.0) Neutrophils (%) (Auto) 72.0 % 74.1 % (16.0-70.0) (16.0-70.0) Stomatocytes 1+ (NORMAL) Blood Urea Nitrogen 21 MG/DL (7-18) Estimat Glomerular Filtration 82 ML/MIN (>89) 70 ML/MIN (>89) 83 ML/MIN (>89) 82 ML/MIN (>89) Rate Random Glucose 143 MG/DL 116 MG/DL 107 MG/DL (74-106) (74-106) (74-106) Calcium Level 6.9 MG/DL 7.4 MG/DL 7.4 MG/DL 7.8 MG/DL (8.5-10.1) (8.5-10.1) (8.5-10.1) (8.5-10.1) Protein Corrected Calcium 8.2 MG/DL (8.5-10.1) Total Protein 4.6 GM/DL 5.2 GM/DL 5.0 GM/DL (6.4-8.2) (6.4-8.2) (6.4-8.2) Platelet Count 140 TH/MM3 129 TH/MM3 (150-450) (150-450) Monocytes (%) (Auto) 9.4 % (0.0-8.0) 9.8 % (0.0-8.0) 8.6 % (0.0-8.0) Chloride Level 109 MEQ/L 109 MEQ/L 108 MEQ/L (98-107) (98-107) (98-107) Eosinophils (%) (Auto) 4.6 % (0.0-4.0) Potassium Level 3.4 MEQ/L (3.5-5.1) Aspartate Amino Transf 14 U/L (15-37) (AST/SGOT) Alkaline Phosphatase 37 U/L (45-117) Albumin 2.9 GM/DL (3.4-5.0) Lymphocytes # (Auto) 0.9 TH/MM3 (1.0-4.8) Hospital Course PT ADMITTED WITH GI BLEED-ON ASA-HELD.SEEN BY DR TENORIO-EGD/COLON DONE - NORMAL.SBFT DONE -OK.HGB 9.3 -CLEARED FOR DC BY DR TENORIO.CAPSULE ENDOSCOPY OUTPT. Pt Condition on Discharge: Good Discharge Disposition: Discharge Home Discharge Instructions DIET: Follow Instructions for: Soft Diet Additional Diet Instructions: bland diet Activities you can perform: Regular-No Restrictions Addis Veras DO Sep 02, 2016 18:09
== END 2016-09-02 18:37 | disposition home or self-care (01) ==
LOC: NEPE 20:30 → INTOOBSV 22:41 → NEDA 22:41 → NEPGCP 08-31 01:54 → UNDODISIN 09-02 18:37
PROVIDERS: ADMIT Family Medicine; ATTEND Family Medicine
DX: K92.1 Melena (principal); K29.50 Unspecified chronic gastritis without bleeding; K64.8 Other hemorrhoids; D50.9 Iron deficiency anemia, unspecified; K64.4 Residual hemorrhoidal skin tags; K21.9 Gastro-esophageal reflux disease without esophagitis; Z98.0 Intestinal bypass and anastomosis status; I10 Essential (primary) hypertension; E78.5 Hyperlipidemia, unspecified; Z87.11 Personal history of peptic ulcer disease; Z85.048 Personal history of other malignant neoplasm of rectum, rectosigmoid junction, and anus; Z90.49 Acquired absence of other specified parts of digestive tract; Z88.0 Allergy status to penicillin; Z79.82 Long term (current) use of aspirin
CPT/HCPCS: 00740; 36430; 43239; 45378; 74250; 80048; 80053; 83690; 84155; 85025; 85610; 85730; 86850; 86900; 86901; 86920; 88305; 88312; 93005; 96365; 99291; C9113; G0378; J0610; J7030; P9016